=== PATIENT | female | born 1965 | race Caucasian/White ===

== ENCOUNTER 2021-12-05 18:30 | Emergency (ER) | payer SELFPAY ==
[~2021-12-05] VITALS: Ht 152.4 cm; Wt 81.8 kg
[2021-12-05] MEDS ORDERED: ALBU8HFA IH (18:40)
[2021-12-05 20:04] VITALS: BP 130/78
[2021-12-05 20:17] LABS: COVID AG,FIA SOURCE NASAL SWAB
== END 2021-12-05 21:49 | disposition home or self-care (01) ==
LOC: EMS 18:32
DX: U07.1 COVID-19 (principal); Z79.899 Other long term (current) drug therapy
CPT/HCPCS: 99283